=== PATIENT | male | born 1990 | race Caucasian/White ===

== ENCOUNTER 2018-03-08 11:30 | Emergency (ER) | payer MEDICAID ==
[~2018-03-08] VITALS: Ht 182.9 cm; Wt 86.4 kg
[2018-03-08 11:39] VITALS: Ht 182.9 cm; Wt 86.4 kg
[2018-03-08] MEDS ORDERED: NAPROSYN500 MG PO (14:05)
[2018-03-08 14:26] VITALS: BP 136/73
== END 2018-03-08 14:29 | disposition home or self-care (01) ==
LOC: D.ER 11:30
DX: S16.1XXA Strain of muscle, fascia and tendon at neck level, initial encounter (principal); V49.9XXA Car occupant (driver) (passenger) injured in unspecified traffic accident, initial encounter; Y93.89 Activity, other specified; Y92.410 Unspecified street and highway as the place of occurrence of the external cause